=== PATIENT | female | born 1995 | race Caucasian/White ===

== ENCOUNTER 2018-02-11 08:20 | Inpatient (IN) | payer MEDICAID ==
[~2018-02-11] VITALS: Ht 162.6 cm; Wt 104.3 kg
[2018-02-11] MEDS ORDERED: LR 1,000 ML IV SCH (08:52)
[2018-02-11] MEDS ORDERED: OXYTOCIN/0.9 % SODIUM CHLORIDE 1,000 ML IV SCH (08:52)
[2018-02-11] MEDS ORDERED: LR 1,000 ML IV ONE (08:52)
[2018-02-11] MEDS ORDERED: TERBUTALINE SULFATE 1 MG/ML VIAL SUBCUT ONE (09:00)
[2018-02-11] MEDS ORDERED: NALBUPHINE HCL 10 MG/ML AMP IVP PRN (09:00)
[2018-02-11 09:38] LABS: HEMATOCRIT 35.3 % (36-48); HEMOGLOBIN 11.9 g/dL (12.0-16.0); MEAN CORPUSCULAR HEMOGLOBIN 28 pg (27-31); MEAN CORPUSCULAR HGB CONC 34 % (32-36); MEAN CORPUSCULAR VOLUME 84 fL (79.0-98.0); PLATELET COUNT (AUTO) 236 K/uL (130-430); RED BLOOD CELL COUNT(AUTO) 4.22 MIL/uL (4.2-6.2); RED CELL DISTRIBUTION WIDTH 14.7 % (9.0-15.0); WHITE BLOOD COUNT (AUTO) 10.2 K/uL (4.5-11.0)
[2018-02-11 10:08] LABS: BAND % (MANUAL) 1 % (0-6); LYMPHOCYTES % (MANUAL) 21 % (20-46)
[2018-02-11 10:09] LABS: BASOPHILS % (MANUAL) 0 % (0-2); EOSINOPHILS % (MANUAL) 1 % (0-7); MONOCYTES % (MANUAL) 8 % (0-11)
[2018-02-11 10:17] VITALS: BP_SYST 133
[2018-02-11] MEDS ORDERED: fentaNYL CITRATE/PF 100 MCG/2 ML AMP ONE (11:22)
[2018-02-11] MEDS ORDERED: ROPIVACAINE 0.2% 100 ML ONE (11:22)
[2018-02-11] MEDS ORDERED: LR 500 ML IV ONE (13:38)
[2018-02-11] MEDS ORDERED: FENT2mCg/mL-ROPIVA0.2%/NS EPID 100 ML EP SCH (13:45)
[2018-02-11] MEDS ORDERED: CEFAZOLIN 2 GM IVPB PREMIX 50 ML IV ONE ×2 (19:45→19:56)
[2018-02-11] MEDS ORDERED: ONDANSETRON HCL 4 MG/2 ML VIAL IVP ONE (20:36)
[2018-02-11] MEDS ORDERED: fentaNYL CITRATE/PF 100 MCG/2 ML AMP IVP ONE (20:36)
[2018-02-11] MEDS ORDERED: LR 1,000 ML IV.SOLN IV ONE (20:36)
[2018-02-11] MEDS ORDERED: EPINEPHrine 1 MG/ML AMP IV ONE (20:36)
[2018-02-11] MEDS ORDERED: MIDAZOLAM HCL 5 MG/5 ML VIAL IVP ONE (20:36)
[2018-02-11] MEDS ORDERED: BUPIVACAINE /PF 0.5% 30 ML VIAL INJ ONE (20:36)
[2018-02-11] MEDS ORDERED: NS IRRIG SOLN 1000 ML IR ONE (20:36)
[2018-02-11] MEDS ORDERED: ONDANSETRON HCL 4 MG/2 ML VIAL IVP PRN (21:00)
[2018-02-11] MEDS ORDERED: NALOXONE HCL 0.4 MG/ML AMP (NARCAN) IVP PRN ×2 (21:00)
[2018-02-11] MEDS ORDERED: MORPHINE SULFATE 10MG/10ML PF AMP EP SCH (21:00)
[2018-02-11] MEDS ORDERED: KETOROLAC TROMETHAMINE 60 MG/2 ML VIAL IM PRN (21:00)
[2018-02-11] MEDS ORDERED: TEMAZEPAM 15 MG CAPSULE PO PRN (21:00)
[2018-02-11] MEDS ORDERED: DIPHENHYDRAMINE INJ 50 MG/ML VIAL IVP PRN (21:00)
[2018-02-11] MEDS ORDERED: OXYTOCIN/0.9 % SODIUM CHLORIDE 1,000 ML IV ONE (21:24)
[2018-02-11 21:25] VITALS: BP_SYST 139
[2018-02-11] MEDS ORDERED: ANUSOL 1 EA SUPP.RECT (PREPARATION H) RC PRN (21:30)
[2018-02-11] MEDS ORDERED: DOCUSATE SODIUM 100 MG CAPSULE PO PRN (21:30)
[2018-02-11] MEDS ORDERED: MEASLES,MUMPS&RUBELLA VACC/PF 12500 UNIT/0.5 ML VIAL SUBQ PRN (21:30)
[2018-02-11] MEDS ORDERED: LANOLIN 7 GM OINT. TP PRN (21:30)
[2018-02-11] MEDS ORDERED: SIMETHICONE 80 MG TAB.CHEW PO PRN (21:30)
[2018-02-11] MEDS ORDERED: metroNIDAZOLE 500 mg/NS 200 ML IV ONE (22:11)
[2018-02-11] MEDS ORDERED: PIPERACILLIN/TAZOBACTAM 3.375 GM/VIAL (ZOSYN) IV ONE ×2 (22:11→22:13)
[2018-02-11] MEDS ORDERED: KETOROLAC TROMETHAMINE 30 MG VIAL ONE (22:30)
[2018-02-11] MEDS ORDERED: PIPERACILLIN/TAZO 3.375/DEX-IS 50 ML IV SCH (23:00)
[2018-02-12] MEDS: CEFAZOLIN 1 GM IVPB PREMIX 50 ML IV SCH ×3 (04:00→16:00)
[2018-02-12] MEDS: PIPERACILLIN/TAZO 3.375/DEX-IS 50 ML IV SCH ×2 (05:00→11:05)
[2018-02-12] MEDS: metroNIDAZOLE 500 mg/NS 100 ML IV SCH ×2 (06:10→14:06)
[2018-02-12] MEDS ORDERED: ACETAMINOPHEN 325 MG TABLET PO PRN (11:00)
[2018-02-12] MEDS ORDERED: ACETAMINOPHEN 325 MG TABLET ONE ×2 (11:08→18:34)
[2018-02-12 16:51] LABS: BASOPHILS % (AUTO) 0.1 % (0.0-2.0); EOSINOPHILS % (AUTO) 0.1 % (0.0-4.0); HEMATOCRIT 29.4 % (36-48); HEMOGLOBIN 9.7 g/dL (12.0-16.0); LYMPHOCYTES # (AUTO) 0.7 K/uL (1.0-5.5); LYMPHOCYTES % (AUTO) 4.4 % (20.5-51.5); MEAN CORPUSCULAR HEMOGLOBIN 28 pg (27-31); MEAN CORPUSCULAR HGB CONC 33 % (32-36); MEAN CORPUSCULAR VOLUME 85 fL (79.0-98.0); MONOCYTES # (AUTO) 0.5 K/uL (0.0-1.0); MONOCYTES % (AUTO) 3.2 % (1.7-9.3); NEUTROPHILS # (AUTO) 14.4 K/uL (1.8-7.7); NEUTROPHILS % (AUTO) 92.2 % (40.0-70.0); PLATELET COUNT (AUTO) 232 K/uL (130-430); RED BLOOD CELL COUNT(AUTO) 3.47 MIL/uL (4.2-6.2); RED CELL DISTRIBUTION WIDTH 15.5 % (9.0-15.0); WHITE BLOOD COUNT (AUTO) 15.6 K/uL (4.5-11.0)
[2018-02-12] MEDS: IBUPROFEN 600 MG TABLET PO SCH (17:45)
[2018-02-12] MEDS ORDERED: NALBUPHINE HCL 10 MG/ML AMP IVP PRN (21:00)
[2018-02-12] MEDS ORDERED: HYDROcodone/ACETAMIN 5-325 MG TAB (NORCO/ VICODIN) PO PRN (21:30)
[2018-02-12] MEDS ORDERED: OXYCODONE/ACETAMINOPHEN 5-325 TABLET PO PRN ×2 (21:30)
[2018-02-13] MEDS: IBUPROFEN 600 MG TABLET PO SCH ×3 (00:04→12:15)
== END 2018-02-13 14:00 | disposition home or self-care (01) | DRG 540 ==
LOC: OBSVTOIN 08:20 → UNDOADMOB 08:20 → INTOOBSV 08:20 → SPU 08:20 → UNDOADMOB 08:46 → SPU 08:46 → OBSVTOIN 09:10 → UNDOADMOB 18:20 → SPU 18:20 → UNDODISIN 02-13 14:00
PROVIDERS: ADMIT Obstetrics & Gynecology; ATTEND Obstetrics & Gynecology
PROC: 10D00Z1 Extraction of Products of Conception, Low, Open Approach (ICD-10-PCS; principal; 2018-02-11 18:30)
DX: O42.92 Full-term premature rupture of membranes, unspecified as to length of time between rupture and onset of labor (principal); O76 Abnormality in fetal heart rate and rhythm complicating labor and delivery; O77.0 Labor and delivery complicated by meconium in amniotic fluid; Z37.0 Single live birth; Z3A.39 39 weeks gestation of pregnancy
CPT/HCPCS: 36415; 81002-TC; 85007; 85025; 85027; 86886; 86900; 86901; 94760; J0171; J0690; J1885; J2250; J2405; J2543; J2590; J2795; J3010; J3490; J7120